=== PATIENT | male | born 1970 | race Caucasian/White ===

== ENCOUNTER 2021-10-14 22:00 | Emergency (ER) | payer MEDICAID ==
[2021-10-14] MEDS ORDERED: Sodium Chloride 0.9% 10 ML Syringe FLUSH PRN ×2 (22:59→23:20)
[2021-10-14] MEDS ORDERED: Ondansetron 4 MG/2 ML SDV IVPUSH ONE (23:02)
[2021-10-14] MEDS ORDERED: HYDROmorphone 1 MG/ML Syringe IVPUSH ONE (23:02)
[2021-10-14 23:19] LABS: ESTIMATED GFR 107 mL/min (>60)
[2021-10-14] MEDS ORDERED: Sodium Chloride 0.9% 50 ML IV ONE (23:20)
[2021-10-14] MEDS ORDERED: Iopamidol 612 MG/ML 100 ML Bottle IV PRN (23:20)
[2021-10-14] MEDS ORDERED: Diphtheria,Pertussis(Acell),Tetanus Vaccine 0.5 ML Syringe IM ONE (23:23)
[2021-10-15] MEDS ORDERED: Bacitracin Oint 1 GM U/D Packet TOP ONE (02:15)
== END 2021-10-15 02:44 | disposition home or self-care (01) ==
LOC: JP.ED 22:00
DX: S61.432A Puncture wound without foreign body of left hand, initial encounter (principal); S61.431A Puncture wound without foreign body of right hand, initial encounter; S81.832A Puncture wound without foreign body, left lower leg, initial encounter; S81.831A Puncture wound without foreign body, right lower leg, initial encounter; S20.212A Contusion of left front wall of thorax, initial encounter; S09.90XA Unspecified injury of head, initial encounter; Z23 Encounter for immunization; V86.99XA Unspecified occupant of other special all-terrain or other off-road motor vehicle injured in nontraffic accident, initial encounter
CPT/HCPCS: 36415; 70450; 71260; 72125; 73590; 73630; 74177; 80053; 80307; 85025; 85610; 85730; 90471; 90715; 96374; 96375; 99284; J1170; J2405; J3490; Q9967